=== PATIENT | female | born 1980 | race Hispanic/Latino ===

== ENCOUNTER 2018-04-22 07:13 | Outpatient (CLI) | payer OTHER | END 2018-04-22 07:14 | disposition home or self-care (01) | LOC: BICULT 07:13 | PROVIDERS: ATTEND Nurse Practitioner | DX: O09.92 Supervision of high risk pregnancy, unspecified, second trimester (principal); Z3A.22 22 weeks gestation of pregnancy | CPT/HCPCS: 76805 ==

== ENCOUNTER 2018-06-21 10:10 | Inpatient (IN) | payer MEDICAID, OTHER, SELFPAY ==
[2018-06-21] MEDS ORDERED: hydrALAZINE 20 MG/ML VIAL ONE (11:10)
[2018-06-21 11:31] VITALS: TEMP 98.6; BMI 31.3
[2018-06-21] MEDS: hydrALAZINE 20 MG/ML VIAL SLOW IVP PRN ×2 (11:39→20:46)
[2018-06-21 11:55] LABS: #Basophils 0.1 thou/uL (0.0-0.2); #Eosinphils 0.1 thou/uL (0.0-0.7); #Lymphocytes 1.9 thou/uL (1.20-3.40); #Monocytes 0.4 thou/uL (0.11-0.59); #Neutrophils 4.9 thou/uL (1.40-6.50); %Basophils 0.8 % (0.0-1.0); %Eosinophils 0.8 % (0.0-10.0); %Neutrophils 67.3 % (42.0-75.0); Hemoglobin 13.1 g/dL (12.0-16.0); Mean Corpuscular HGB CONC 34.8 g/dL (32.0-36.0); Mean Corpuscular Hemoglobin 32.6 pg (27.0-31.0); Mean Corpuscular Volume 93.6 fL (78.0-98.0); Mean Platelet Volume 10.4 fL (7.4-10.4); Platelet Count 178 thou/uL (130-400); RBC Distribution Width 12.3 % (11.5-14.5); Red Blood Cell (RBC) Count 4.02 mill/uL (4.20-5.40); White Blood Cell (WBC) Count 7.3 thou/uL (4.8-10.8)
[2018-06-21] MEDS ORDERED: hydrALAZINE 20 MG/ML VIAL SLOW IVP SCH (12:15)
[2018-06-21 12:20] LABS: ALT (SGPT) 25 U/L (8-55); AST (SGOT) 25 U/L (5-34); Albumin 2.8 g/dL (3.5-5.0); Alkaline Phosphatase 133 U/L (40-150); Anion Gap 11 mmol/L (10-20); BUN (Urea Nitrogen) 16 mg/dL (7.0-18.7); Bilirubin, Total 0.3 mg/dL (0.2-1.2); Calc. Creatinine Clearance 137 mL/min (70-130); Calcium 8.4 mg/dL (7.8-10.44); Carbon Dioxide 20 mmol/L (22-29); Chloride 110 mmol/L (98-107); Estimated GFR-MDRD Greater than 90; Globulin 2.3 g/dL (2.4-3.5); Glucose 86 mg/dL (70-105); Protein, Total 5.1 g/dL (6.0-8.3); Sodium 137 mmol/L (136-145); Uric Acid 6.1 mg/dL (2.6-6.0)
[2018-06-21] MEDS: Betamet Acet/Betamet Na Ph 30 MG/5 ML VIAL IM SCH (12:33)
--- NOTE | 2018-06-21 15:59 | ULT ---
OBSTETRICAL UTLRASOUND BIOPHYSICAL PROFILE UMBILICAL ARTERIAL DOPPLER ULTRASOUND: DATE: 06/11/2018. COMPARISON: None. HISTORY: Hypertension, proteinuria, a 31-week female. TECHNIQUE: Multiplanar, lazo scale sonographic imaging of the gravid uterus obtained. Umbilical artery evaluate d with color flow and spectral analysis. FINDINGS: A single intrauterine gestation is present demonstrating a vertex presentation. heart rate is 135 b.p.m. The placenta is located in an anterior fundal region with no evidence for previa or abrup tion. The cervical length is estimated at 4.6 cm. anatomy is not assessed on this examination. The personal banker measures the amniotic fluid index at 12.6 cm. BIOMETRY: BPD 7.8 cm, 31 weeks 2 days HC 29.1 cm, 32 weeks 1 day AC 25.9 cm, 30 weeks 0 days FL 6.0 cm, 31 weeks 2 days Average based on ultrasound is 31 weeks 0 days with estimated date of delivery on 08/23/2018. Estimat ed weight is 1626 gm +/- 241 gm. Packaging Design Engineer performed a biophysical profile and scored tone, breathing, movement, a nd amniotic fluid of 2 out of 2 for a normal 8 out of 8 biophysical profile. Umbilical arterial Doppler ultrasound demonstrates peak systolic velocity of 47 cm/s and systolic/yuliya stolic ratio of 2.3 at the level of the placenta, peak systolic velocity of 50.8 cm/s and systolic/di astolic ratio of 3.12 in the umbilical artery, and demonstrates peak systolic velocity of 92.8 cm/s a t cord insertion with systolic/diastolic ratio of 4.1. IMPRESSION: 1. Single live intrauterine gestation as detailed above. 2. An 8 out of 8 biophysical profile score. 3. Umbilical arterial Doppler ultrasound at the cord insertion demonstrates abnormally high systolic -diastolic ratio at 4.1 with abnormally high resistive index of 0.76 and abnormally high pulsatility index of 5.65. Of note, the amniotic fluid volume appears slightly low qualitatively, but quantitatively is within n ormal limits. Recommend close sonographic followup of the amniotic fluid index/volume. CODE T POS: [facility]
[2018-06-21] MEDS: Acetaminophen 500 MG TAB PO PRN (20:07)
[2018-06-22] MEDS: Acetaminophen 500 MG TAB PO PRN (05:08)
[2018-06-22] MEDS: Betamet Acet/Betamet Na Ph 30 MG/5 ML VIAL IM SCH (12:15)
[2018-06-22 15:42] LABS: Collection Duration 24 hrs
[2018-06-22 15:43] LABS: Urine Total Volume 1050 mL (600-1600)
[2018-06-22 16:34] LABS: Protein - 24 Hr 8589 mg/24 hr (Less than 300); Protein, Urine 818 mg/dL (1-14)
[2018-06-22] MEDS: Lactated Ringer's 1,000 ML IV SCH (18:34)
[2018-06-22] MEDS: hydrALAZINE 20 MG/ML VIAL SLOW IVP PRN ×2 (18:35→21:05)
[2018-06-23] MEDS: Lactated Ringer's 1,000 ML IV SCH ×2 (00:42→06:04)
[2018-06-23] MEDS: hydrALAZINE 20 MG/ML VIAL SLOW IVP PRN ×2 (07:21→09:17)
--- NOTE | 2018-06-23 09:08 | PDOC.EVN ---
Event Note - Event Note Event Note: 06/23/18 at 0905: CECILY SPIKEMAKING SUPERVISOR NOTE Transfer Note I was informed by Dr Roca this AM around 0800 that Ms Matt Garcia is a 32 week and 1 day patient with persistent severe range hypertension. LFTs, creatinine, and CBC are wnl. Urine protein with significant protinuria (not a criteris for severe disease). As she has had 48 hrs of steroids for FLM, and has required increasing hypertensive medication, Dr Roca has planned for delivery due to persitent severe range BPs requiring medications. Although he was planning on delivery here, the NICU here is currently not allowing new admits. Per NICU recommendation, she will be transferred for severe Preeclampsia remote from delivery. Dr Roca will discuss transfer with the patient when he returns from the office around noon. We have notified the transfer center to begin transfer proceedings to [facility] in [place] (per Abelino recommendation). I have not yet seen the patient but am helping with transfer logistics. Sylvia with [facility] is aware
[2018-06-23] MEDS ORDERED: Magnesium Sulfate 20 gm/500 ml 20 GM/500 ML BAG ONE (09:25)
--- NOTE | 2018-06-23 09:39 | PDOC.EVN ---
Event Note - Event Note Event Note: OBGYN MINI BAR ATTENDANT: TRANSFER UPDATE Dr Roca has discussed transport with the patienty. patient agrees. She has required antihypertensive meds this AM as well. Receiving institution is ready. I will sign the transfer orders as his proxy. I was directly involved in this patient's care, but assisted with transfer logistics, as requested. All clear.
[2018-06-23] MEDS ORDERED: Calcium Gluc 4.6 MEQ/10 ML (100 MG/ML) IV PRN (10:56)
[2018-06-23] MEDS ORDERED: Magnesium Sulfate 20 gm/500 ml 6 GM/150 ML BAG IVPB SCH (11:00)
[2018-06-23] MEDS ORDERED: Magnesium Sulfate 20 gm/500 ml 20 GM/500 ML BAG IVPB SCH (11:00)
[2018-06-23] MEDS: Acetaminophen 500 MG TAB PO PRN (11:07)
--- NOTE | 2018-06-23 12:26 | PDOC.EVN ---
Event Note - Event Note Event Note: Transfer note: Patient's transport team is here. Last BP few minutes ago was 170/90s...or so. Patient very nervous and crying now with increased BPs. I talked with Cristy (DIANA) who informed me the transport team requested BP meds prior to transport. I have ordered labetolol 20mg SIVP x 1 now and we will recheck in 15 minutes x2 pror to transport. rn float aware
[2018-06-23] MEDS ORDERED: Labetalol HCl 100 MG/20 ML VIAL ONE (12:27)
--- NOTE | 2018-06-23 12:29 | PDOC.EVN ---
Event Note - Event Note Event Note: Likely mild anxiety attack pre-transport. OK for low dose Xanax as very anxious prior to transport.
[2018-06-23] MEDS ORDERED: ALPRAZolam 0.5 MG TAB PO SCH (12:30)
[2018-06-23] MEDS ORDERED: Labetalol HCl 100 MG/20 ML VIAL SLOW IVP SCH (12:30)
[2018-06-23 12:33] VITALS: BP 164/83
== END 2018-06-23 13:15 | disposition short-term general hospital (02) | DRG 833 ==
LOC: L&D 10:26
PROVIDERS: ADMIT Family Medicine; ATTEND Family Medicine
DX: O14.13 Severe pre-eclampsia, third trimester (principal); Z3A.32 32 weeks gestation of pregnancy; O99.343 Other mental disorders complicating pregnancy, third trimester; F41.9 Anxiety disorder, unspecified; O09.523 Supervision of elderly multigravida, third trimester; Z79.899 Other long term (current) drug therapy
CPT/HCPCS: 36415; 76700; 76815; 76819; 80053; 84156; 84550; 85025; 93923; J0360; J0702; J3475

== ENCOUNTER 2020-01-09 13:46 | Outpatient (CLI) | payer OTHER ==
--- NOTE | 2020-01-09 15:04 | ULT ---
ULTRASOUND OBSTETRICAL COMPLETE: DATE: 01/09/2020 HISTORY: 39-year-old female for evaluation of anatomy FINDINGS: number: fernández lie: Cephalic Maternal cervix: 4.5 cm. Closed. Placenta: Posterior-fundal. No previa. Amniotic fluid volume: Subjectively within normal limits. BRAD not measured. heart rate: 152 bpm The following anatomy is visualized, with no evidence of anomalies: Head, cerebellum, lateral ventricles, four-chamber heart, stomach, kidneys, cord insertion, bladder, cervical spine, thoracic spine, lumbar spine, sacrum, nose and lips, upper extremities, and lower extremities. However, three-vessel cord is not visualized. biometry: Biparietal diameter (BPD): 4.3 cm 19 w 1 d Head circumference (HC): 16.3 cm 19 w 1 d Abdominal circumference (AC): 13.2 cm 18 w 6 d Femur length (FL): 2.9 cm 19 w 0 d Average ultrasound age (AUA): 19 w 1 d Estimated date of delivery (ANSELMO): 06/03/2020 Estimated weight (EFW): 262 g +/- 38 g IMPRESSION: 1) Live 2nd trimester intrauterine gestation. 2) Estimated gestational age of 19 weeks, 1 days 3) cephalic lie. 4) no anatomic abnormality identified (but three-vessel cord not visualized).
== END 2020-01-09 13:47 | disposition home or self-care (01) ==
LOC: BICULT 13:46
PROVIDERS: ATTEND Family Medicine
DX: O09.292 Supervision of pregnancy with other poor reproductive or obstetric history, second trimester (principal); Z3A.19 19 weeks gestation of pregnancy
CPT/HCPCS: 76805

== ENCOUNTER 2020-04-11 11:21 | Inpatient (IN) | payer MEDICAID, OTHER ==
[2020-04-11] MEDS ORDERED: hydrALAZINE 20 MG/ML VIAL ONE (12:29)
[2020-04-11 13:00] LABS: #Lymphocytes 1.1 thou/uL (1.20-3.40); #Monocytes 0.4 thou/uL (0.11-0.59); #Neutrophils 4.2 thou/uL (1.40-6.50); %Basophils 0.2 % (0.0-1.0); %Eosinophils 0.5 % (0.0-10.0); %Lymphocytes 19.4 % (21.0-51.0); %Monocytes 6.4 % (0.0-10.0); %Neutrophils 73.5 % (42.0-75.0); Hemoglobin 12.5 g/dL (12.0-16.0); Mean Corpuscular HGB CONC 34.8 g/dL (32.0-36.0); Mean Corpuscular Hemoglobin 32.3 pg (27.0-31.0); Mean Corpuscular Volume 92.7 fL (78.0-98.0); Platelet Count 216 thou/uL (130-400); RBC Distribution Width 12.5 % (11.5-14.5); Red Blood Cell (RBC) Count 3.86 mill/uL (4.20-5.40); White Blood Cell (WBC) Count 5.7 thou/uL (4.8-10.8)
[2020-04-11] MEDS: Betamet Acet/Betamet Na Ph 30 MG/5 ML VIAL IM SCH (13:00)
[2020-04-11 13:22] LABS: ALT (SGPT) 20 U/L (8-55); AST (SGOT) 19 U/L (5-34); Albumin 3.1 g/dL (3.5-5.0); Alkaline Phosphatase 194 U/L (40-110); Anion Gap 13 mmol/L (10-20); BUN (Urea Nitrogen) 4 mg/dL (7.0-18.7); Bilirubin, Total 0.2 mg/dL (0.2-1.2); Calc. Creatinine Clearance 142 mL/min (70-130); Calcium 8.8 mg/dL (7.8-10.44); Carbon Dioxide 19 mmol/L (22-29); Chloride 109 mmol/L (98-107); Estimated GFR-MDRD Greater than 90; Globulin 2.9 g/dL (2.4-3.5); Glucose 86 mg/dL (70-105); Potassium 3.8 mmol/L (3.5-5.1); Sodium 137 mmol/L (136-145)
[2020-04-11 13:34] LABS: Creatinine, Urine 62.32 mg/dL (47-110)
--- NOTE | 2020-04-11 14:06 | ULT ---
Exam: Limited OB ultrasound Nonstress biophysical profile HISTORY: Evaluate for growth TECHNIQUE: Limited OB ultrasound was performed. Nonstress biophysical profile was also performe d FINDINGS: OB ultrasound: Presentation: Vertex Cervix: Cannot be assessed due to shadowing heart tones: 141 bpm Amniotic fluid index 8.3 cm biometry: BPD 8.18 cm, 32 weeks 6 days Head circumference 29.67 cm, 32 weeks 6 days Abdominal circumference 30.65 cm, 34 weeks 4 days Femur length 6.05 cm, 31 weeks 3 days Average age by sonography is 33 weeks 0 days Estimated weight is 2182 g +/- 323 g Umbilical Doppler: At insertion: The systolic velocity 17.8 cm, end-diastolic velocity 8.4 cm, SD ratio 2.1 Midportion: Peak systolic velocity 66.5 cm, end-diastolic velocity is 19.2 cm, SD ratio is 3.5 At the cord insertion: Peak systolic velocity is 65.2 cm/s, end-diastolic velocity is 17.5 cm/s, SD ratio 3.8 Nonstress biophysical profile: tone 2 breathing 2 movements 2 Amniotic fluid 2 Total score 8 out of 8 IMPRESSION: 1. Nonstress biophysical profile with a total score 8 out of 8. 2. Average age by sonography is 33 weeks 0 days. presentation is vertex 3. Umbilical artery Doppler as above. Transcribed Date/Time: 04/11/2020 2:15 PM
--- NOTE | 2020-04-11 14:07 | ULT ---
Please refer to Limited OB ultrasound report Transcribed Date/Time: 04/11/2020 2:15 PM
[2020-04-11 17:54] LABS: Syphilis Antibody Nonreactive (Nonreactive); Syphilis Antibody Index 0.03 S/CO (<1.00 Non-Reactive)
[2020-04-11 17:55] LABS: Hep B Surf Ag Non-Reactive S/CO (NonReactive)
[2020-04-11] MEDS ORDERED: Dextrose 5% in Water 1,000 ML IV PRN (19:12)
[2020-04-11] MEDS ORDERED: Dextrose 50% Abboject 50 ML SYRINGE SLOW IVP PRN (19:12)
[2020-04-11] MEDS: Labetalol 100 MG TAB PO SCH (20:52)
[2020-04-11] MEDS: HumaLOG 300 UNITS/3 ML VIAL SC PRN (21:12)
[2020-04-12 12:29] LABS: SARS-CoV-2 MS2 Positive; SARS-CoV-2 N Gene Negative; SARS-CoV-2 S Gene Negative; SARS-CoV-2 by NAA Not Detected (NotDetected); SARS-CoV-2 orf1ab Negative
[2020-04-12] MEDS: Betamet Acet/Betamet Na Ph 30 MG/5 ML VIAL IM SCH (13:20)
[2020-04-12] MEDS ORDERED: Misoprostol 200 MCG TAB ONE (14:13)
--- NOTE | 2020-04-12 15:59 | PDOC.BPN ---
- Brief Progress Note Encounter Date: 04/12/20 Encounter Time: 15:58 I received a consult order through [facility] for the patient without communication regarding details of consult request. I discussed the patient with Dr. Roca who reported not requesting the consult. I advised that I am happy to speak to the patient if delivery is indicated at his request.
[2020-04-12] MEDS: HumaLOG 300 UNITS/3 ML VIAL SC PRN ×2 (16:33→21:35)
[2020-04-12] MEDS ORDERED: Famotidine 20 MG TAB PO SCH (20:30)
[2020-04-12] MEDS: Labetalol 100 MG TAB PO SCH (21:17)
[2020-04-13] MEDS: hydrALAZINE 20 MG/ML VIAL ONE (02:42)
[2020-04-13 06:39] LABS: Hemoglobin 11.5 g/dL (12.0-16.0); Mean Corpuscular HGB CONC 33.8 g/dL (32.0-36.0); Mean Corpuscular Hemoglobin 32.1 pg (27.0-31.0); Mean Corpuscular Volume 94.9 fL (78.0-98.0); Mean Platelet Volume 9.8 fL (7.4-10.4); Platelet Count 219 thou/uL (130-400); RBC Distribution Width 12.5 % (11.5-14.5); Red Blood Cell (RBC) Count 3.57 mill/uL (4.20-5.40); White Blood Cell (WBC) Count 8.1 thou/uL (4.8-10.8)
[2020-04-13 06:49] LABS: Hemoglobin A1c 5.8 % (4.0-6.0)
[2020-04-13 07:01] LABS: ALT (SGPT) 20 U/L (8-55); AST (SGOT) 17 U/L (5-34); Albumin 2.9 g/dL (3.5-5.0); Alkaline Phosphatase 177 U/L (40-110); Anion Gap 15 mmol/L (10-20); BUN (Urea Nitrogen) 11 mg/dL (7.0-18.7); Bilirubin, Total 0.2 mg/dL (0.2-1.2); Calc. Creatinine Clearance 140 mL/min (70-130); Carbon Dioxide 15 mmol/L (22-29); Chloride 111 mmol/L (98-107); Estimated GFR-MDRD Greater than 90; Globulin 2.7 g/dL (2.4-3.5); Glucose 117 mg/dL (70-105); Potassium 3.8 mmol/L (3.5-5.1); Protein, Total 5.6 g/dL (6.0-8.3); Sodium 137 mmol/L (136-145)
[2020-04-13] MEDS: Labetalol 100 MG TAB PO SCH ×2 (09:39→20:57)
[2020-04-14] MEDS: hydrALAZINE 20 MG/ML VIAL ONE (03:39)
[2020-04-14] MEDS ORDERED: hydrALAZINE 20 MG/ML VIAL ONE (06:23)
[2020-04-14] MEDS ORDERED: hydrALAZINE 20 MG/ML VIAL SLOW IVP PRN (06:59)
[2020-04-14] MEDS ORDERED: hydrALAZINE 20 MG/ML VIAL SLOW IVP SCH (07:00)
[2020-04-14] MEDS ORDERED: Magnesium Sulfate 20 gm/500 ml 20 GM/500 ML BAG ONE (07:02)
[2020-04-14] MEDS: Magnesium Sulfate 20 gm/500 ml 20 GM/500 ML BAG IVPB SCH ×2 (07:05→14:36)
[2020-04-14] MEDS: Labetalol 100 MG TAB PO SCH (09:16)
[2020-04-14 10:57] VITALS: BMI 37.8
[2020-04-14] MEDS ORDERED: Bicitra 30 ML UDCUP PO SCH (11:30)
[2020-04-14] MEDS ORDERED: CEFAZOLIN 2 GM in Premix Bag 1 BAG IVPB SCH (11:30)
[2020-04-14] MEDS ORDERED: MORPHINE 5 MG/10 ML PF VIAL ONE (11:32)
[2020-04-14] MEDS ORDERED: Ondansetron PF 4 MG/2 ML Vial ONE (11:33)
[2020-04-14] MEDS ORDERED: Oxytocin 10 UNITS/ML VIAL ONE (11:33)
[2020-04-14] MEDS ORDERED: Dexamethasone 4 mg/ml Vial ONE (11:33)
[2020-04-14] MEDS ORDERED: Ketorolac Tromethamine 30 MG/ML VIAL ONE (11:33)
[2020-04-14] MEDS ORDERED: PHENYLEPHRINE-NS 100 MCG/ML 10 ML SYRINGE ONE (11:33)
[2020-04-14] MEDS ORDERED: Ondansetron HCl/PF 4 MG/2 ML Vial IVP PRN (12:02)
[2020-04-14] MEDS ORDERED: Meperidine HCl/PF 25 MG/ML VIAL SLOW IVP PRN (12:02)
[2020-04-14] MEDS ORDERED: L&D-Morphine 4 MG/ML VIAL SLOW IVP PRN (12:02)
[2020-04-14] MEDS ORDERED: HYDROmorphone 2 MG/ML VIAL SLOW IVP PRN (12:02)
[2020-04-14] MEDS ORDERED: diphenhydrAMINE 50 MG/ML VIAL IVP PRN (12:02)
[2020-04-14] MEDS ORDERED: Promethazine HCl 25 MG SUPP PR PRN (12:02)
[2020-04-14] MEDS ORDERED: Naloxone HCl 0.4 mg/ml Vial IV PRN (12:02)
[2020-04-14] MEDS ORDERED: Naloxone HCl 0.4 mg/ml Vial IVP PRN ×2 (12:02)
[2020-04-14] MEDS ORDERED: Promethazine HCl 25 MG/ML VIAL IM PRN ×2 (12:02→15:40)
[2020-04-14] MEDS ORDERED: Ondansetron PF 4 MG/2 ML Vial IVP PRN ×2 (12:02→15:40)
[2020-04-14] MEDS ORDERED: Communication Order-Pharmacy FS SCH (12:15)
[2020-04-14] MEDS ORDERED: Fentanyl 100 MCG/2 ML VIAL ONE (12:19)
--- NOTE | 2020-04-14 12:44 | PDOC.APC ---
Antepartum Consult SAVANA FELICIANO is a 39 year old female at [32 6/7] gestational weeks. Consult with german interpretation provided by nursery nurse Kalie I was asked by Dr Roca to speak with the patient regarding anticipated course for a baby born at 32-33 weeks. Once the patient is taken for delivery, the resuscitation team will be present. The initial focus will be on respiratory stabilization and may include minimal assistance, CPAP or intubation with surfactant administration. I discussed that the patient will need to be admitted to the NICU in an isolette due to temperature instability associated with prematurity. We will then obtain IV access (peripheral will be first line, umbilical if unable to obtain peripheral) as babies are at risk for hypoglycemia. We discussed that babies born are at higher risk for feeding intolerance, infection and jaundice. I discussed that breastmilk is the best nutrition for babies and she is strongly encouraged to pump after delivery. Mother does plan to breastfeed. I discussed the availability of donor milk and the risk for NEC with formula use. She wants to think about donor milk before agreeing to use. I explained that the duration of hospital stay will be determined on the clinical course of the baby. I outlined the milestones that needed to be achieved to ensure safe discharge home. She had the opportunity to ask questions. I encouraged them to contact our service again if additional questions arise. I spent a total of 20 minutes with patient with greater than 50% of the time counseling & coordinating care. Labs: Ante Labs Blood Type A POSITIVE 04/11/20 17:57 Hep Bs Antigen Non-Reactive S/CO (NonReactive) 04/11/20 14:45
[2020-04-14] MEDS ORDERED: NS / Oxytocin 40 units/1000ml 1,000 ML ONE (14:29)
[2020-04-14 15:23] LABS: HIV (1/2) Antibody/Antigen Non-Reactive (NonReactive); HIV 1/2 INDEX 0.24 S/CO (<1.00)
[2020-04-14] MEDS ORDERED: diphenhydrAMINE 25 MG CAP PO PRN (15:40)
[2020-04-14] MEDS ORDERED: Lanolin Ointment 7 GM TUBE TOP PRN (15:40)
[2020-04-14] MEDS ORDERED: Simethicone Chewable 80 MG TAB PO PRN (15:40)
[2020-04-14] MEDS ORDERED: Calcium Gluconate 4.6 MEQ in Sodium Chloride 0.9% 100 ML IVPB PRN (15:40)
[2020-04-14] MEDS ORDERED: Magnesium Sulfate 20 gm/500 ml 20 GM/500 ML BAG IVPB SCH (15:40)
[2020-04-14] MEDS ORDERED: Bisacodyl 10 MG SUPP PR PRN (15:40)
[2020-04-14] MEDS ORDERED: Adacel (T-DAP) 0.5 ML SYRINGE IM ONE (16:00)
[2020-04-14] MEDS: hydrALAZINE 20 MG/ML VIAL SLOW IVP SCH ×2 (17:12→18:26)
[2020-04-14] MEDS ORDERED: Ketorolac Tromethamine 30 MG/ML VIAL IVP SCH (18:15)
--- NOTE | 2020-04-14 18:15 | OP ---
DATE OF PROCEDURE: 04/14/2020 RESIDENT SURGEON: Genoveva Goodson MD ATTENDING: Dr. Roca PROCEDURE PERFORMED: Repeat low transverse section. PREOPERATIVE DIAGNOSES: 1. Preeclampsia with severe features. 2. intrauterine . 3. Previous delivery. POSTOPERATIVE DIAGNOSES: 1. Preeclampsia with severe features. 2. intrauterine , delivered. 3. History of prior delivery. COMPLICATIONS: None. QUANTITATIVE BLOOD LOSS: 575 mL. ANESTHESIA: Spinal. FINDINGS: Intact placenta with 3-vessel cord noted and discarded. Viable female with Apgars of 8 and 9 and 1 and 5 minutes of life, respectively. SPECIMENS: Cord blood collected for routine labs. DRAINS: Power to gravity draining clear urine. INDICATIONS: A 39-year-old, G2, P 0-1-0-1 at 32.6 weeks of gestation, presented to Labor and Delivery with severe range blood pressures and diagnosed with preeclampsia with severe features. This necessitated urgent need for delivery. PROCEDURE IN DETAIL: After risks, benefits, and alternatives were explained to the patient, she gave informed consent. Preoperative antibiotics included cefazolin 2 g IV. The patient was taken to the OR where spinal anesthesia was initiated. She was placed in the supine position with a left tilt. She was prepped and draped in the usual sterile fashion. A Pfannenstiel incision was made over previous scar, which was carried down to the level of the fascia which was sharply nicked. The fascial cut was extended bilaterally with Cain scissors. The fascia was bluntly and sharply dissected free from the rectus muscles. The rectus muscles were divided digitally and retracted manually. The peritoneum was entered sharply by making a small cut with Metzenbaum scissors. The peritoneum was then retracted manually. Bladder blade was placed. A low-transverse uterine incision was then made, and uterus was entered bluntly in the midline. Hysterotomy was extended manually. was noted to be in the vertex position and delivered easily with fundal pressure. time noted at 11:56. The cord was clamped and cut, and cord blood was obtained. The was taken to the warmer, where the resuscitation team awaited. The placenta was delivered spontaneously with fundal pressure and cord traction. The uterus was externalized, and endometrium curetted with a dry lap. The hysterotomy was closed with #1 Monocryl in a running locking fashion. An imbricating layer of #1 Monocryl was sewn over the right half of the incision to achieve hemostasis. Hemostasis of the hysterotomy was then noted. Abdomen was irrigated. Seprafilm was placed over hysterotomy closure and anterior portion of the uterus. The uterus was internalized; hysterotomy again noted to be hemostatic. Of note , there were several fibroids throughout the submucosa of the uterus. The peritoneum was closed with 3-0 Vicryl in a running nonlocking fashion. The fascia was then closed with 0 PDS in a running nonlocking fashion. Subcutaneous space was closed with 3-0 plain gut with 3 interrupted sutures. The skin was closed with joseph. Dressing was placed. All counts were correct. The patient tolerated the procedure well and went to Labor and Delivery for recovery and to be placed on magnesium for the next 24 hours status post delivery. Job ID: [id number] [facility]
[2020-04-14] MEDS: Ketorolac Tromethamine 30 MG/ML VIAL IVP SCH (18:38)
[2020-04-14] MEDS: Losartan 25 MG TAB PO SCH ×2 (18:52→19:04)
[2020-04-15] MEDS ORDERED: Meperidine HCl/PF 25 MG/ML VIAL IM PRN (00:16)
[2020-04-15] MEDS ORDERED: HYDROcodone/Acetaminophen 5/325 mg Tablet PO PRN ×2 (00:16)
[2020-04-15 01:07] LABS: Hemoglobin 11.9 g/dL (12.0-16.0); Mean Corpuscular HGB CONC 34.3 g/dL (32.0-36.0); Mean Corpuscular Hemoglobin 32.8 pg (27.0-31.0); Mean Corpuscular Volume 95.4 fL (78.0-98.0); Mean Platelet Volume 10.3 fL (7.4-10.4); Platelet Count 197 thou/uL (130-400); RBC Distribution Width 12.6 % (11.5-14.5); Red Blood Cell (RBC) Count 3.63 mill/uL (4.20-5.40); White Blood Cell (WBC) Count 9.5 thou/uL (4.8-10.8)
[2020-04-15] MEDS: Docusate Calcium (SURFAK) 240 MG CAP PO SCH ×3 (05:03→21:53)
[2020-04-15] MEDS: Ferrous Sulfate 325 MG TAB PO SCH ×3 (05:03→21:53)
[2020-04-15] MEDS ORDERED: Losartan 25 MG TAB PO SCH (09:00)
[2020-04-15] MEDS: hydrALAZINE 20 MG/ML VIAL SLOW IVP SCH (10:15)
[2020-04-15] MEDS: Prenatal Vitamin 1 TAB PO SCH (10:53)
[2020-04-15] MEDS ORDERED: hydrALAZINE 20 MG/ML VIAL SLOW IVP PRN (12:34)
[2020-04-15] MEDS: Ibuprofen 800 MG TAB PO SCH ×2 (16:08→21:53)
[2020-04-15] MEDS: cloNIDine 0.1 MG TAB PO PRN (16:08)
[2020-04-15] MEDS: Ketorolac Tromethamine 30 MG/ML VIAL IVP SCH ×2 (22:36→22:37)
[2020-04-16] MEDS: cloNIDine 0.1 MG TAB PO PRN ×2 (04:40→09:00)
[2020-04-16] MEDS: Ibuprofen 800 MG TAB PO SCH ×3 (06:49→21:39)
[2020-04-16] MEDS: Ferrous Sulfate 325 MG TAB PO SCH ×2 (08:51→21:42)
[2020-04-16] MEDS: Prenatal Vitamin 1 TAB PO SCH (08:57)
[2020-04-16] MEDS: Docusate Calcium (SURFAK) 240 MG CAP PO SCH ×2 (08:57→21:40)
[2020-04-16] MEDS: Losartan/Hydrochlorothiazide 100 mg/25 mg Tablet PO SCH (08:58)
[2020-04-17] MEDS: cloNIDine 0.1 MG TAB PO PRN (00:43)
[2020-04-17] MEDS: Ibuprofen 800 MG TAB PO SCH ×2 (06:13→13:56)
[2020-04-17] MEDS: Labetalol 100 MG TAB PO SCH (07:43)
[2020-04-17] MEDS: Ferrous Sulfate 325 MG TAB PO SCH (08:30)
[2020-04-17] MEDS: Losartan/Hydrochlorothiazide 100 mg/25 mg Tablet PO SCH (08:31)
[2020-04-17] MEDS: Prenatal Vitamin 1 TAB PO SCH (08:31)
[2020-04-17] MEDS: Docusate Calcium (SURFAK) 240 MG CAP PO SCH (08:31)
[2020-04-17 11:56] VITALS: BP 149/72; TEMP 98.4
== END 2020-04-17 16:15 | disposition home or self-care (01) | DRG 788 ==
LOC: L&D/OP 11:21 → L&D 11:27 → 3SE 04-15 14:47
PROVIDERS: ADMIT Family Medicine; ATTEND Family Medicine
PROC: 10D00Z1 Extraction of Products of Conception, Low, Open Approach (ICD-10-PCS; principal; 2020-04-14)
PROC: 3E0P05Z Introduction of Adhesion Barrier into Female Reproductive, Open Approach (ICD-10-PCS; 2020-04-14)
DX: O14.14 Severe pre-eclampsia complicating childbirth (principal); Z3A.32 32 weeks gestation of pregnancy; Z37.0 Single live birth; Z20.828 Contact with and (suspected) exposure to other viral communicable diseases; O34.211 Maternal care for low transverse scar from previous cesarean delivery; O24.429 Gestational diabetes mellitus in childbirth, unspecified control; Z79.899 Other long term (current) drug therapy; Z79.82 Long term (current) use of aspirin
CPT/HCPCS: 36415; 36416; 51702; 76815; 76819; 80053; 82570; 83036; 83735; 84156; 85025; 85027; 86780; 86850; 86900; 86901; 87340; 87389; 87635; 88307; 93975; 99285; C1751; J0360; J0690; J0702; J1100; J1885; J2274; J2405; J2590; J3010; J3475; U0003